=== PATIENT | female | born 1960 | race Caucasian/White ===

== ENCOUNTER → 2018-01-21 | Outpatient (CLI) | payer BC ==
[~2018-01-21] MED LIST: Progestero50 MG/1 M1
== END ==
LOC: LAB SHORT 14:04 → LAB EV 14:04
DX: L98.9 Disorder of the skin and subcutaneous tissue, unspecified (principal)
CPT/HCPCS: 87529

== ENCOUNTER → 2020-05-07 | Outpatient (CLI) | payer BC ==
[2020-05-08 10:32] LABS: Stool Occult Bld Immuno 1 Negative (NEGATIVE); Stool Occult Bld Immuno 2 Negative (NEGATIVE)
== END | disposition home or self-care (01) ==
LOC: LAB 14:27 → LAB SHORT 14:27 → LAB FUT 04-19 08:35
PROVIDERS: Internal Medicine Gastroenterology
DX: Z12.11 Encounter for screening for malignant neoplasm of colon (principal)
CPT/HCPCS: 82274

== ENCOUNTER 2020-05-16 06:31 | Day surgery (SDC) | payer BC ==
[~2020-05-16] VITALS: Ht 160 cm; Wt 58.9 kg
== END 2020-05-16 08:36 | disposition home or self-care (01) ==
LOC: ORSCSDS 06:31
PROVIDERS: Ophthalmology
PROC: 08RJ3JZ Replacement of Right Lens with Synthetic Substitute, Percutaneous Approach (ICD-10-PCS; principal; 2020-05-16 08:00)
DX: H25.11 Age-related nuclear cataract, right eye (principal)
CPT/HCPCS: J2001; J2250; J3010; J3301; J7040; V2632

== ENCOUNTER 2020-06-08 09:56 | Emergency (ER) | payer BC ==
[~2020-06-08] VITALS: Ht 170.2 cm; Wt 72.6 kg
== END 2020-06-08 11:05 | disposition home or self-care (01) ==
LOC: ER 09:56
DX: M79.604 Pain in right leg (principal)
CPT/HCPCS: 73562-RT; 99283-25